=== PATIENT | male | born 1960 | race Caucasian/White ===

== ENCOUNTER 2022-05-13 16:11 | Emergency (ER) | payer BC ==
[~2022-05-13 16:11] MED LIST: ASPIRIN EC81 MG PO; ATORVASTATIN CA20 MG PO; GLYBURIDE5 MG PO; LISINOPRIL20 MG PO; METFORMIN HCL1000 MG PO; METOPROLOL TART25 MG PO; OMEPRAZOLE40 MG PO; TRULICITY1.5 MG/0.5 SQ; ZOFRAN ODT 4 MG4 MG SL
[2022-05-13 17:06] LABS: HEMOGLOBIN 15.6 gm/dl (14.0-17.5); RED BLOOD COUNT 5.34 M/UL (4.20-5.50); WHITE BLOOD COUNT 10.9 K/UL (4.5-11.0)
[2022-05-13 17:30] LABS: BUN/CREATININE RATIO 20 (0-10)
[2022-05-13] MEDS ORDERED: MECLIZINE HCL12.5 MG PO (18:20)
== END 2022-05-13 19:00 | disposition home or self-care (01) ==
LOC: ER1 16:11
PROVIDERS: Emergency Medicine
DX: H81.10 Benign paroxysmal vertigo, unspecified ear (principal); E78.00 Pure hypercholesterolemia, unspecified; I10 Essential (primary) hypertension; E11.9 Type 2 diabetes mellitus without complications; F17.200 Nicotine dependence, unspecified, uncomplicated
CPT/HCPCS: 71045; 80053; 84484; 85025; 86140; 93005; 99284